=== PATIENT | male | born 1975 | race African-American/Black ===

== ENCOUNTER 2017-11-02 14:43 | Emergency (ER) | payer MEDICAID ==
[~2017-11-02] VITALS: Ht 177.8 cm; Wt 132.0 kg
[2017-11-03] MEDS ORDERED: BACITRACIN ZINC OINT UDPKT TOP ONE
[2017-11-03] MEDS ORDERED: IBUPROFEN 600MG TABLET PO ONE
[2017-11-03] MEDS ORDERED: TETANUS, DIPHTHERIA, PERTUSSIS VAC/PF 0.5ML (>7YR OLD) IM ONE
[2017-11-03 00:34] VITALS: BP 141/90
== END 2017-11-03 00:47 | disposition home or self-care (01) ==
LOC: ER 15:27
DX: S01.01XA Laceration without foreign body of scalp, initial encounter (principal); Y93.89 Activity, other specified; X99.8XXA Assault by other sharp object, initial encounter; Y92.410 Unspecified street and highway as the place of occurrence of the external cause; Y99.0 Civilian activity done for income or pay; R03.0 Elevated blood-pressure reading, without diagnosis of hypertension; Z23 Encounter for immunization
CPT/HCPCS: 12001; 90471; 90715; 99283; Z7610